=== PATIENT | male | born 2005 | race American Indian/Alaskan Native ===

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

== ENCOUNTER 2025-03-30 05:37 | Emergency (ER) | payer MEDICAID | END 2025-03-30 06:28 | disposition left against medical advice (07) | LOC: DL.ED 05:37 | DX: Z53.21 Procedure and treatment not carried out due to patient leaving prior to being seen by health care provider (principal) ==

== ENCOUNTER 2025-03-31 17:37 | Emergency (ER) | payer MEDICAID | END 2025-03-31 18:34 | disposition home or self-care (01) | LOC: DL.ED 17:37 | DX: S81.812A Laceration without foreign body, left lower leg, initial encounter (principal); S63.602A Unspecified sprain of left thumb, initial encounter; S46.002A Unspecified injury of muscle(s) and tendon(s) of the rotator cuff of left shoulder, initial encounter; Y04.8XXA Assault by other bodily force, initial encounter | CPT/HCPCS: 99283 ==

== ENCOUNTER 2025-07-08 10:23 | Emergency (ER) | payer SELFPAY ==
[2025-07-08] MEDS: Ketorolac 30 MG/ML SDV IM ONE (11:55)
[2025-07-08] MEDS: fentaNYL 100 MCG/2 ML SDV IM ONE (11:55)
== END 2025-07-08 12:08 | disposition home or self-care (01) ==
LOC: DL.ED 10:23
DX: S82.51XA Displaced fracture of medial malleolus of right tibia, initial encounter for closed fracture (principal); Z79.899 Other long term (current) drug therapy; X50.1XXA Overexertion from prolonged static or awkward postures, initial encounter; Y93.89 Activity, other specified
CPT/HCPCS: 73610; 99283; A9270

== ENCOUNTER 2025-07-28 11:37 | Emergency (ER) | payer SELFPAY ==
[2025-07-28] MEDS: Lactulose Soln 10 GM/15 ML 30 ML UD Cup PO ONE (12:14)
== END 2025-07-28 12:16 | disposition home or self-care (01) ==
LOC: DL.ED 11:37
DX: K59.00 Constipation, unspecified (principal); F17.200 Nicotine dependence, unspecified, uncomplicated; Z79.899 Other long term (current) drug therapy
CPT/HCPCS: 74018; 99283; 99284; A9270